=== PATIENT | male | born 1990 | race Caucasian/White ===

== ENCOUNTER 2017-08-24 22:40 | Emergency (ER) | payer BC ==
[2017-08-24 22:45] VITALS: RESP 18; O2SAT 100
[2017-08-24] MEDS ORDERED: SODIUM CHLORIDE 0.9% 1000ML 1,000 ML IV ONE (22:57)
[2017-08-24] MEDS ORDERED: KETOROLAC TROMETHAMINE 30 MG/ML SOL IV ONE (22:58)
[2017-08-24] MEDS ORDERED: ONDANSETRON HCL 4 MG/2 ML 4 MG in SODIUM CHLORIDE 0.9% 100 ML 100 ML IV ONE (22:58)
[2017-08-24] MEDS ORDERED: SODIUM CHLORIDE 0.9% 50 ML 25 ML IV PRN (22:58)
[2017-08-24] MEDS ORDERED: ONDANSETRON HCL 4 MG/2 ML SOL ONE (23:01)
[2017-08-24] MEDS ORDERED: KETOROLAC TROMETHAMINE 30 MG/ML SOL ONE (23:01)
[2017-08-24] MEDS ORDERED: ONDANSETRON HCL 4 MG/2 ML SOL IV ONE (23:16)
[2017-08-24] MEDS ORDERED: SODIUM CHLORIDE 0.9% FLUSH 10 ML SOL IV PRN (23:19)
[2017-08-24 23:22] LABS: HEMATOCRIT 39 % (39-53); MEAN CORPUSCULAR HGB CONC 34.3 gm/dl (32.0-36.0); MEAN CORPUSCULAR VOLUME 86 fL (80-100)
[2017-08-24 23:32] LABS: CALCIUM 8.8 mg/dl (8.5-10.1); POTASSIUM 3.3 mMol/L (3.5-5.1)
[2017-08-24 23:55] LABS: BASOPHILS % (MANUAL) 0 % (0-3); EOSINOPHILS % (MANUAL) 0 % (0-9); LYMPHOCYTES % (MANUAL) 9 % (10-50); NORMAL RBCS NORMAL RBCS
[2017-08-25] MEDS ORDERED: MORPHINE SULFATE 10 MG/ML SOL IV ONE (00:15)
[2017-08-25] MEDS ORDERED: MORPHINE SULFATE 10 MG/ML SOL ONE (00:17)
[2017-08-25 00:27] VITALS: PULSE 89; TEMP 98.9
[2017-08-25] MEDS ORDERED: PIPERACILLIN/TAZOBACT 3.375 GM 3.375 GM in SODIUM CHLORIDE 0.9% 100 ML 100 ML IV ONE (00:34)
[2017-08-25] MEDS ORDERED: AMPICILLIN/SULBACTAM 3 GM PDS ONE (00:37)
[2017-08-25] MEDS ORDERED: PDS IV SCH (00:45)
[2017-08-25] MEDS ORDERED: SODIUM CHLORIDE 0.9% IV SCH (00:45)
[2017-08-25] MEDS ORDERED: AMPICILLIN IV SCH (00:45)
[2017-08-25] MEDS ORDERED: SULBACTAM IV SCH (00:45)
[2017-08-25 01:22] VITALS: BP 119/65
== END 2017-08-25 01:22 | disposition short-term general hospital (02) ==
LOC: ED 22:40
DX: K35.80 Unspecified acute appendicitis (principal)
CPT/HCPCS: 74177; 80048; 85007; 85027; 99285; J0295; J1885; J2270; J2405; Q9967